=== PATIENT | female | born 1950 | race Caucasian/White ===

== ENCOUNTER → 2017-02-04 | Outpatient (CLI) | payer MEDICARE, BC ==
--- NOTE | 2017-02-04 15:11 | REP ---
THYROID ULTRASOUND: HISTORY: Followup nodule. COMPARISON: 06/02/2016 The prior exam showed a complex cystic and solid 3.3 x 2.3 x 2.3 cm sized mass in the right lobe of the thyroid gland, felt to be unchanged from prior exams. Today's examination shows a cystic and solid mass in the right lobe measuring approximately 3.5 x 2.4 x 3 cm, possibly increased slightly when the technical differences between the exams are taken into consideration. Overall the right lower thyroid gland measures 5.1 x 3.1 x 2.7 cm and the left lobe measures 3.3 x 0.9 x 1.2 cm. The isthmus measures 5 mm. IMPRESSION: Possible slight increase in size, right sided mass as described above. Signed by Jus Moseley DO 02/04/2017 04:52 P
== END ==
LOC: M RAD 14:03
PROVIDERS: ATTEND Physician Assistant Medical
DX: E04.1 Nontoxic single thyroid nodule (principal)

== ENCOUNTER → 2017-02-17 | Outpatient (CLI) | payer MEDICARE, BC ==
[~2017-02-17] MED LIST: METHACHOLINE KIT (J7674) INH ONE
--- NOTE | 2017-02-17 10:08 | PFTRPT ---
Tech: Courtney BARRIOS RRT Age: 67 Sex: Female Race: Height: 62.00 Inches Weight: 168.00 Lbs BSA: 1.77 Diagnosis: R06.00 METHACHOLINE CHALLENGE REPORT: ORDERING PROVIDER:Jace Feldman D.O. DATE OF SERVICE: 02/17/17 INTERPRETATION: The study was of excellent technical quality. Some difficulty with cough is noted. Under protocol, methacholine was administered. Even after a maximal dose of 25 mg (188.875 CDUs) of methacholine, no provocation dose was ever achieved, as the maximal deflection was 19% in his FEV1. IMPRESSION: Negative methacholine challenge study. MTDD
== END ==
LOC: M CARPUL 07:32
PROVIDERS: ATTEND Internal Medicine Pulmonary Disease
DX: R06.00 Dyspnea, unspecified (principal)
CPT/HCPCS: 94070; 95070; J7674

== ENCOUNTER → 2017-02-18 | Outpatient (CLI) | payer MEDICARE, BC ==
--- NOTE | 2017-02-21 08:59 | SLEEPHOME ---
DATE OF PROCEDURE: 02/18/2017 ORDERED BY: Dr. Feldman Diagnostic home sleep testing was performed for reevaluation of sleep apnea syndrome symptoms in this patient with a history of nonrestorative sleep and prior sleep apnea post uvulopalatopharyngoplasty. For testing, a NOX-T3 respiratory monitoring device was used. Continuous record was made of pulse, oxygen saturation, airflow, chest and abdominal strain, and body position. 9 hours and 59 minutes of data were reviewed. There were 8 hours and 15 minutes marked as time in bed. During the interval marked time in bed, there were 322 respiratory events identified of 10 seconds in duration or greater for a respiratory event index of 39. The events were purely obstructive. Baseline pulse rate was 64 beats per minute. Pulse rate ranged 50 to 95. Baseline saturation was 93%. Lowest oxygen saturation was 88%. Testing was performed in both the supine and nonsupine positions. IMPRESSION: Abnormal home sleep testing with repetitive respiratory events and oxygen desaturation to 88% with a respiratory event index of 39 is consistent with severe obstructive sleep apnea syndrome. RECOMMENDATION: The patient should be encouraged to undergo formal sleep evaluation and in-laboratory pressure titration.
== END ==
LOC: M SLEEP HO 08:47
PROVIDERS: ATTEND Internal Medicine Pulmonary Disease
DX: R06.83 Snoring (principal)

== ENCOUNTER → 2017-02-19 | Outpatient (CLI) | payer MEDICARE, BC | LOC: M LAB 12:08 | PROVIDERS: ATTEND Physician Assistant Medical | DX: E04.1 Nontoxic single thyroid nodule (principal) ==

== ENCOUNTER → 2017-03-09 | Outpatient (CLI) | payer MEDICARE, BC | LOC: M SLEEP 03-07 19:45 | PROVIDERS: ATTEND Internal Medicine Pulmonary Disease | DX: G47.33 Obstructive sleep apnea (adult) (pediatric) (principal) ==

== ENCOUNTER → 2017-12-09 | Outpatient (REF) | payer MEDICARE, BC | LOC: M LAB REF 18:27 | DX: L72.11 Pilar cyst (principal) | CPT/HCPCS: 88305 ==

== ENCOUNTER → 2018-03-10 | Outpatient (REF) | payer MEDICARE, BC | LOC: M LAB REF 12:08 | DX: N60.39 Fibrosclerosis of unspecified breast (principal) | CPT/HCPCS: 88305 ==

== ENCOUNTER 2018-07-02 18:18 | Emergency (ER) | payer MEDICARE, BC ==
[2018-07-02 21:26] LABS: BASO % 0.3 % (0.0-1.0); EOS # 0.2 10^3/uL (0.0-0.50); EOS % 1.9 % (0.0-3.0); HEMATOCRIT 37.7 % (36.0-47.0); HEMOGLOBIN 12.4 g/dl (12.0-15.5); IMMATURE GRANULOCYTE % 0.4 % (0-3.0); LYMPH # 1.8 10^3/uL (1.5-4.5); LYMPH % 17.8 % (24.0-44.0); MEAN CORPUSCULAR HGB CONC 32.9 g/dl (32.0-36.5); MEAN CORPUSCULAR VOLUME 88.1 fl (80.0-96.0); MONO % 9.5 % (0.0-5.0); NEUTROPHILS # 7.1 10^3/uL (1.8-7.7); NEUTROPHILS % 70.1 % (36.0-66.0); PLATELET COUNT, AUTOMATED 224 10^3/uL (150-450); RED BLOOD COUNT 4.28 10^6/uL (4.00-5.40); RED CELL DISTRIBUTION WIDTH 13.5 % (11.5-14.5); WHITE BLOOD COUNT 10.1 10^3/uL (4.0-10.0)
[2018-07-02 21:53] LABS: ALBUMIN 3.6 GM/DL (3.2-5.2); ALBUMIN/GLOBULIN RATIO 1.03 (1.00-1.93); ALKALINE PHOSPHATASE 81 U/L (45-117); ALT/SGPT 35 U/L (12-78); AMYLASE 32 U/L (25-115); ANION GAP 7 MEQ/L (8-16); AST/SGOT 17 U/L (7-37); BILIRUBIN,DIRECT 0.2 MG/DL (0.0-0.2); BILIRUBIN,TOTAL 0.7 MG/DL (0.2-1.0); BLOOD UREA NITROGEN 16 MG/DL (7-18); CALCIUM LEVEL 9.1 MG/DL (8.8-10.2); CARBON DIOXIDE LEVEL 29 MEQ/L (21-32); CHLORIDE LEVEL 106 MEQ/L (98-107); CREATININE FOR GFR 0.84 MG/DL (0.55-1.30); GLOMERULAR FILTRATION RATE > 60.0 (>45); GLUCOSE, FASTING 101 MG/DL (70-100); LIPASE 171 U/L (73-393); POTASSIUM SERUM 4.3 MEQ/L (3.5-5.1); SODIUM LEVEL 142 MEQ/L (136-145); TOTAL PROTEIN 7.1 GM/DL (6.4-8.2)
[2018-07-02 22:09] LABS: KETONE, URINE AUTO RFX TRACE mg/dL (NEGATIVE); MUCUS, URINE RFX SMALL (NEGATIVE); NITRITE, URINE AUTO RFX NEGATIVE (NEGATIVE); RBC, URINE AUTO RFX 2 /HPF (0-3); SQUAM EPITHELIAL CELL UR AURFX 0 /HPF (0-6)
[2018-07-02 22:20] LABS: LEUKOCYTE ESTERASE UR AUTO RFX 1+ (NEGATIVE); WBC, URINE AUTO RFX 14 /HPF (0-3)
[2018-07-02] MEDS ORDERED: ISOVUE-370 76% 100ML VIAL (Q9967) As Ordered (22:49)
[2018-07-03] MEDS: AUGMENTIN 875 MG TAB PO (00:12)
== END 2018-07-03 00:15 | disposition home or self-care (01) ==
LOC: M ED 07-03 00:15
DX: K57.32 Diverticulitis of large intestine without perforation or abscess without bleeding (principal); E11.9 Type 2 diabetes mellitus without complications; I10 Essential (primary) hypertension; K21.9 Gastro-esophageal reflux disease without esophagitis; F41.9 Anxiety disorder, unspecified; F32.9 Major depressive disorder, single episode, unspecified; Z79.899 Other long term (current) drug therapy; Z79.84 Long term (current) use of oral hypoglycemic drugs; Z88.5 Allergy status to narcotic agent; Z88.8 Allergy status to other drugs, medicaments and biological substances
CPT/HCPCS: Q9967

== ENCOUNTER 2019-03-10 07:33 | Day surgery (SDC) | payer MEDICARE, BC ==
[~2019-03-10] VITALS: Ht 154.9 cm; Wt 76.7 kg
[~2019-03-10 07:33] MED LIST changes: +ALPR0.25; +ASPI81TA85 PO; +ATOR1TAB19; +AUGM875T28 PO; +CLOBETASOL; +ESCI10TA2; +FISH1000 PO; +LISI-542; +MAGN400C PO; +METF500T4; -METHACHOLINE KIT (J7674) INH ONE; +METO1TAB87; +PANT40TA3; +SERT25TA88; +VITA50005; +ZOFR4TAB14 PO
[2019-03-10] MEDS: NS 1,000 ML IV SCH (08:15)
--- NOTE | 2019-03-10 08:51 | ROOR ---
Patient Name: Yuliana Bullock Procedure Date: 03/10/2019 8:34 AM Date of : 1950 Age: 69 Room: [facility] Gender: Female Note Status: Finalized Procedure: Upper GI endoscopy Indications: Dysphagia Providers: Catarino Way Jr, MD Referring MD: Karen Glaser DO Requesting Provider: Medicines: Propofol per Anesthesia Complications: No immediate complications. Procedure: Pre-Anesthesia Assessment: - Prior to the procedure, a History and Physical was performed, and patient medications and allergies were reviewed. The patient is competent. The risks and benefits of the procedure and the sedation options and risks were discussed with the patient. All questions were answered and informed consent was obtained. Patient identification and proposed procedure were verified by the physician and the nurse in the pre-procedure area and in the procedure room. Mental Status Examination: alert and oriented. Airway Examination: normal oropharyngeal airway and neck mobility. Respiratory Examination: clear to auscultation. CV Examination: normal. ASA Grade Assessment: II - A patient with mild systemic disease. After reviewing the risks and benefits, the patient was deemed in satisfactory condition to undergo the procedure. The anesthesia plan was to use moderate sedation / analgesia (conscious sedation). Immediately prior to administration of medications, the patient was re-assessed for adequacy to receive sedatives. The heart rate, respiratory rate, oxygen saturations, blood pressure, adequacy of pulmonary ventilation, and response to care were monitored throughout the procedure. The physical status of the patient was re-assessed after the procedure. The Endoscope was introduced through the mouth, and advanced to the second part of duodenum. The upper GI endoscopy was accomplished without difficulty. The patient tolerated the procedure well. Findings: The upper third of the esophagus, middle third of the esophagus, lower third of the esophagus and gastroesophageal junction were normal. Abnormal motility was noted in the upper third of the esophagus and in the middle third of the esophagus. The cricopharyngeus was normal. There are extra peristaltic waves in the esophageal body. The distal esophagus/lower esophageal sphincter is open. The cardia, gastric fundus, gastric body, gastric antrum, prepyloric region of the stomach and pylorus were normal. Multiple pedunculated polyps with no bleeding and no stigmata of recent bleeding were found in the gastric fundus and in the gastric body. The duodenal bulb, first portion of the duodenum and second portion of the duodenum were normal. Impression: - Normal upper third of esophagus, middle third of esophagus, lower third of esophagus and gastroesophageal junction. - Abnormal esophageal motility. Probable esophageal spasm - Normal cardia, gastric fundus, gastric body, antrum, prepyloric region of the stomach and pylorus. - Multiple gastric inflammatory polyps. seen on UPPER GI [place] 2014 - Normal duodenal bulb, first portion of the duodenum and second portion of the duodenum. - No specimens collected. Recommendation: - Return to my office in 2 weeks. May need referral for esophageal manometry if continues to bother the patient Caatrino Way MD Catarino Way Jr, MD 03/10/2019 8:50:44 AM Electronically signed by Catarino Way Jr, MD Number of Addenda: 0 Note Initiated On: 03/10/2019 8:34 AM Estimated Blood Loss: Estimated blood loss: none.
[2019-03-10 09:05] VITALS: BP 120/58
[2019-03-10] MEDS ORDERED: PROPOFOL 200 MG/20 ML VIAL As Ordered ONE (09:39)
[2019-03-10] MEDS ORDERED: LIDOCAINE 2% INJ 100 MG/5 ML SDV (FOR ANES.) As Ordered ONE (09:39)
== END 2019-03-10 09:14 | disposition home or self-care (01) ==
LOC: M OPP 07:33
PROVIDERS: ATTEND Surgery
DX: K22.4 Dyskinesia of esophagus (principal); K31.7 Polyp of stomach and duodenum; R13.10 Dysphagia, unspecified

== ENCOUNTER → 2019-08-04 | Outpatient (REF) | payer MEDICARE, BC ==
[~2019-08-04] MED LIST changes: +METF-791; -METF500T4; +SERT25TA21; -SERT25TA88
[2019-08-06 00:07] LABS: ANTI DOUBLE STRAND-DNA AB <1 IU/mL (0-9); ANTINUCLEAR ANTIBODIES DIRECT Positive (Negative); CYCLIC CITRULLINATED PEPTIDE 8 units (0-19); Lyme Disease IgG/IgM Antibodie <0.91 ISR (0.00-0.90); Lyme Disease IgM Ab Quantitati <0.80 index (0.00-0.79); RNP ANTIBODIES <0.2 AI (0.0-0.9); SJOGREN'S ANTI SS-A <0.2 AI (0.0-0.9); SJOGREN'S ANTI SS-B <0.2 AI (0.0-0.9); SMITH ANTIBODIES <0.2 AI (0.0-0.9)
== END ==
LOC: M LAB REF 12:07
PROVIDERS: ATTEND Internal Medicine
DX: M79.10 Myalgia, unspecified site (principal); M25.50 Pain in unspecified joint; R53.83 Other fatigue

== ENCOUNTER → 2019-08-04 | Outpatient (REF) | payer MEDICARE, BC ==
[2019-08-06 15:57] LABS: THRYOGLOBULIN ANTIBODIES (ATA) < 1.0 IU/mL (0.0-0.9); THYROGLOBULIN QUANTITATIVE 208.8 ng/mL (1.5-38.5)
== END ==
LOC: M LAB REF 17:19
PROVIDERS: ATTEND Internal Medicine
DX: R53.83 Other fatigue (principal)

== ENCOUNTER → 2020-06-02 | Outpatient (CLI) | payer MEDICARE, BC ==
[~2020-06-02] MED LIST changes: -ASPI81TA85 PO; +ASPI81TA86 PO; -METF-791; +METF-838; +PANT40TA29; -PANT40TA3
== END ==
LOC: M LABSMTC 10:35
PROVIDERS: ATTEND Anesthesiology
DX: Z01.812 Encounter for preprocedural laboratory examination (principal); Z20.828 Contact with and (suspected) exposure to other viral communicable diseases

== ENCOUNTER 2020-06-07 09:41 | Day surgery (SDC) | payer MEDICARE, BC ==
[~2020-06-07] VITALS: Ht 157.5 cm; Wt 68.0 kg
[~2020-06-07 09:41] MED LIST changes: +NS 1,000 ML IV ONE
[2020-06-07] MEDS ORDERED: LIDOCAINE 2% 100MG/5ML SDV (FOR ANES.) As Ordered ONE (10:30)
[2020-06-07] MEDS ORDERED: propofoL 200 MG/20 ML VIAL As Ordered ONE (10:30)
[2020-06-07 11:35] VITALS: BP 138/65
--- NOTE | 2020-06-20 11:36 | ROOR ---
Patient Name: Yuliana Bullock Procedure Date: 06/07/2020 8:12 AM Date of : 1950 Age: 70 Room: [facility] Gender: Female Note Status: Finalized Procedure: Colonoscopy Indications: Screening for colorectal malignant neoplasm Providers: Catarino Way Jr, MD Referring MD: Karen Glaser DO Requesting Provider: Medicines: Propofol per Anesthesia Complications: No immediate complications. Procedure: Pre-Anesthesia Assessment: - Prior to the procedure, a History and Physical was performed, and patient medications and allergies were reviewed. The patient is competent. The risks and benefits of the procedure and the sedation options and risks were discussed with the patient. All questions were answered and informed consent was obtained. Patient identification and proposed procedure were verified by the physician and the nurse in the pre-procedure area and in the procedure room. Mental Status Examination: alert and oriented. Airway Examination: normal oropharyngeal airway and neck mobility. Respiratory Examination: clear to auscultation. CV Examination: normal. ASA Grade Assessment: II - A patient with mild systemic disease. After reviewing the risks and benefits, the patient was deemed in satisfactory condition to undergo the procedure. The anesthesia plan was to use moderate sedation / analgesia (conscious sedation). Immediately prior to administration of medications, the patient was re-assessed for adequacy to receive sedatives. The heart rate, respiratory rate, oxygen saturations, blood pressure, adequacy of pulmonary ventilation, and response to care were monitored throughout the procedure. The physical status of the patient was re-assessed after the procedure. The Colonoscope was introduced through the anus and advanced to the cecum, identified by appendiceal orifice and ileocecal valve. The colonoscopy was performed without difficulty. The patient tolerated the procedure well. The quality of the bowel preparation was adequate. Findings: Multiple small-mouthed diverticula were found in the sigmoid colon. Two sessile polyps were found in the ascending colon and cecum. The polyps were small in size. These polyps were removed with a cold snare. Resection and retrieval were complete. The rectum, recto-sigmoid colon, descending colon, transverse colon, appendiceal orifice and ileocecal valve appeared normal. Impression: - Diverticulosis in the sigmoid colon. - Two small polyps in the ascending colon and in the cecum, removed with a cold snare. Resected and retrieved. - The rectum, recto-sigmoid colon, descending colon, transverse colon, appendiceal orifice and ileocecal valve are normal. Recommendation: - Discharge patient to home (ambulatory). - Repeat colonoscopy in 5-10 years for surveillance based on pathology results. Catarino Way MD Catarino Way Jr, MD 06/07/2020 11:01:31 AM Number of Addenda: 0 Note Initiated On: 06/07/2020 8:12 AM Estimated Blood Loss: Estimated blood loss: none.
== END 2020-06-07 11:38 | disposition home or self-care (01) ==
LOC: M OPP 09:41
PROVIDERS: ATTEND Surgery
DX: Z12.11 Encounter for screening for malignant neoplasm of colon (principal); D12.6 Benign neoplasm of colon, unspecified; K57.30 Diverticulosis of large intestine without perforation or abscess without bleeding; I10 Essential (primary) hypertension; K21.9 Gastro-esophageal reflux disease without esophagitis; Z79.82 Long term (current) use of aspirin; Z79.899 Other long term (current) drug therapy; Z88.5 Allergy status to narcotic agent; Z88.6 Allergy status to analgesic agent; Z88.8 Allergy status to other drugs, medicaments and biological substances; Z91.040 Latex allergy status

== ENCOUNTER → 2021-01-21 | Outpatient (CLI) | payer MEDICARE, BC ==
[~2021-01-21] MED LIST changes: +E-Z-GAS II EFFERVESCENT PACKET (SODIUM BICARB./CITRIC ACID/SIMETHICONE) As Ordered ONE; +E-Z-HD 98% w/w 340GM SUSP BTL As Ordered ONE; +E-Z-PAQUE 96% w/w SUSP 176GM BTL As Ordered ONE; +ESCI10TA16; -ESCI10TA2; -LISI-542; +LISI-898; -NS 1,000 ML IV ONE
--- NOTE | 2021-01-21 17:21 | REP ---
INDICATION: DYSPHAGIA. COMPARISON: None. TECHNIQUE: The procedure was performed under the direct supervision of Dr. Freed. The images were reviewed with Dr. Freed. Liquid barium and gas producing crystals were given in the erect position as well as liquid barium in the prone oblique position in order to perform a double contrast upper GI examination. Additionally liquid barium was given at the end of the examination in order to perform a small bowel follow through. 2.6 minutes of fluoro time was utilized for this procedure. FINDINGS: The facility technician film shows no organomegaly or pathological masses. The intestinal gas pattern is non-specific. The oral and pharyngeal stages of deglutition are unremarkable. Esophageal transport is prompt and efficient and there is no esophagitis, stricture or mucosal ring. There is a sliding-type hiatal hernia. There is gastroesophageal reflux demonstrated to the level of the thoracic inlet. Within the stomach morton are normally outlined. The rugal folds are smooth and regular. There is no gastritis neoplasm or ulcer disease. In the stomach there are multiple sub cm polyps as seen on a previous exam dated 10/25/2014. The duodenal morton are normally outlined . The mucosal folds are smooth and regular. There is no duodenitis pancreatitis peptic ulcer disease or neoplasm. The visualized portion of the proximal small bowel appears normal in course and caliber. The barium column was followed through the small bowel to the level of the terminal ileum. Small bowel transit time is approximately 30 minutes. During fluoroscopy gentle palpation shows all loops are freely movable and pliable. There are no fixed or angulated loops. The small bowel mucosal pattern is normal in course and caliber. There is no transition to suggest a partial small-bowel obstruction. Spot filming of the terminal ileum shows it to be unremarkable. IMPRESSION: 1. There is a sliding-type hiatal hernia. There is gastroesophageal reflux demonstrated to the level of the thoracic inlet. 2. There are multiple sub cm polyps in the stomach as seen on a previous exam dated 10/25/2014. . <Electronically signed by Warren Mckeon > 01/21/21 [id number] <Electronically signed by Tejas Freed > 01/21/21 [id number]
== END ==
LOC: M RAD 09:53
PROVIDERS: ATTEND Internal Medicine
DX: K44.9 Diaphragmatic hernia without obstruction or gangrene (principal); K21.9 Gastro-esophageal reflux disease without esophagitis

== ENCOUNTER → 2021-02-21 | Outpatient (CLI) | payer MEDICARE, BC ==
[~2021-02-21] MED LIST changes: -ALPR0.25; +ALPR0.25 PO; +ASPI81TA26 PO; +CLOBETASOL TOP; -E-Z-GAS II EFFERVESCENT PACKET (SODIUM BICARB./CITRIC ACID/SIMETHICONE) As Ordered ONE; -E-Z-HD 98% w/w 340GM SUSP BTL As Ordered ONE; -E-Z-PAQUE 96% w/w SUSP 176GM BTL As Ordered ONE; +LEXA1TAB PO; +OMEP40CA97 PO; +PRED10PA PO; +VITA50005 PO
== END ==
LOC: M LABSMTC 10:18
PROVIDERS: ATTEND Anesthesiology
DX: Z01.818 Encounter for other preprocedural examination (principal); Z20.822 Contact with and (suspected) exposure to COVID-19

== ENCOUNTER 2021-02-26 08:24 | Day surgery (SDC) | payer MEDICARE, BC ==
[~2021-02-26] VITALS: Ht 157.5 cm; Wt 76.2 kg
[~2021-02-26 08:24] MED LIST changes: +LR 1,000 ML IV ONE; +ceFAZolin SOD 1 GM in D5W MINI-BAG PLUS 50 ML IV ONE
[2021-02-26] MEDS ORDERED: ONDANSETRON 4MG/2ML VIAL As Ordered ONE (09:36)
[2021-02-26] MEDS ORDERED: LIDOCAINE 2% 100MG/5ML SDV (FOR ANES.) As Ordered ONE (09:36)
[2021-02-26] MEDS ORDERED: propofoL 200 MG/20 ML VIAL As Ordered ONE (09:36)
[2021-02-26] MEDS ORDERED: MIDAZOLAM INJ 2MG/2ML VIAL (J2250 PER 1MG) As Ordered ONE (09:37)
[2021-02-26] MEDS ORDERED: BUPIVACAINE HCL 0.25% 30ML VIAL As Ordered ONE (10:13)
[2021-02-26 12:35] VITALS: BP 137/62
--- NOTE | 2021-03-20 10:38 | RO ---
OPERATIVE NOTE DATE OF OPERATION: 02/26/2021 PREOPERATIVE DIAGNOSIS: Lipoma right thigh. POSTOPERATIVE DIAGNOSIS: Lipoma right thigh (6 cm x 8 cm). PROCEDURE: Excision of multilobulated right thigh lipoma. SURGEON: Catarino Way Jr, MD. EDGE INKER HEELS: ANESTHESIA: IV sedation. EBL: Minimal. FLUIDS: Crystalloid. BRIEF PROCEDURE SUMMARY: Patient was brought to the operating room and was given IV sedation plus local anesthetic. Was prepped and draped in the usual sterile fashion, and an incision was made over the top of the multilobulated lipoma. Initial incision was carried down to the wall of the lipoma/sac, and what I found was this multilobulated lipoma, and a combination of blunt and sharp dissection as well as electrocautery was used to remove the lipoma and take down the attachments to the surrounding tissue. Eventually once I was able to mobilize this adequately and take all the lobules out of the surrounding subcutaneous tissue, the area was irrigated and then a good hemostasis was achieved with minimal electrocautery. 3-0 Vicryl was used to close the dermis. 4-0 Vicryl was used to approximate the skin. Steri-Strips and a dry sterile dressing was applied. Patient was awakened from our anesthesia and brought to the recovery room awake, alert, and hemodynamically stable. Sponge and needle counts correct x2.
== END 2021-02-26 12:35 | disposition home or self-care (01) ==
LOC: M SDC 08:24
PROVIDERS: ATTEND Surgery
DX: D17.23 Benign lipomatous neoplasm of skin and subcutaneous tissue of right leg (principal); I10 Essential (primary) hypertension; E78.00 Pure hypercholesterolemia, unspecified; E11.9 Type 2 diabetes mellitus without complications; E04.9 Nontoxic goiter, unspecified; K21.9 Gastro-esophageal reflux disease without esophagitis; R13.10 Dysphagia, unspecified; M19.90 Unspecified osteoarthritis, unspecified site; M54.9 Dorsalgia, unspecified; L30.9 Dermatitis, unspecified; G43.909 Migraine, unspecified, not intractable, without status migrainosus; G47.30 Sleep apnea, unspecified; Z88.5 Allergy status to narcotic agent; Z88.1 Allergy status to other antibiotic agents; Z88.4 Allergy status to anesthetic agent; Z91.040 Latex allergy status; Z79.899 Other long term (current) drug therapy; Z79.82 Long term (current) use of aspirin; Z79.84 Long term (current) use of oral hypoglycemic drugs; Z79.52 Long term (current) use of systemic steroids
CPT/HCPCS: 27337; 88304; J0690; J2250; J2405

== ENCOUNTER 2021-03-15 16:53 | Emergency (ER) | payer MEDICARE, BC ==
[~2021-03-15] VITALS: Ht 157.5 cm; Wt 77.2 kg
[~2021-03-15 16:53] MED LIST changes: -LR 1,000 ML IV ONE; -ceFAZolin SOD 1 GM in D5W MINI-BAG PLUS 50 ML IV ONE
--- NOTE | 2021-03-15 19:51 | REP ---
INDICATION: post op pain r/o dvt COMPARISON: None. TECHNIQUE: Freed scale and color Doppler evaluation using linear high frequency transducer. FINDINGS: Ultrasound examination of the right lower extremity deep venous structures from the common femoral vein through the calf/ankle to include the peroneal, and tibial veins demonstrates normal compressibility flow and wave patterns in response to respiration and augmentation. There is no evidence for deep venous thrombosis. Contralateral CFV is patent and normal. There is a 6.0 x 2.5 x 5.9 cm complex fluid collection in the subcutaneous tissue at the site of recent surgical incision which likely represents seroma versus hematoma. IMPRESSION: 1. No evidence for deep venous thrombosis. 2. Complex fluid collection at the site of recent incision likely representing hematoma versus seroma. <Electronically signed by Chino Alvarado > 03/15/211947
[2021-03-15 20:17] VITALS: BP 149/67
--- NOTE | 2021-03-16 06:47 | ED PDOC ---
Post-Departure Follow-Up tabitha tobar and jesús faxed formal report of RLE us for fu José Leyva MD Mar 16, 2021 06:47
== END 2021-03-15 20:17 | disposition home or self-care (01) ==
LOC: M ED 16:53
DX: L76.34 Postprocedural seroma of skin and subcutaneous tissue following other procedure (principal); I10 Essential (primary) hypertension; E11.9 Type 2 diabetes mellitus without complications; E78.00 Pure hypercholesterolemia, unspecified; F33.9 Major depressive disorder, recurrent, unspecified; F41.9 Anxiety disorder, unspecified; G47.30 Sleep apnea, unspecified; K21.9 Gastro-esophageal reflux disease without esophagitis; Z86.018 Personal history of other benign neoplasm; Z79.899 Other long term (current) drug therapy; Z79.82 Long term (current) use of aspirin; Z79.84 Long term (current) use of oral hypoglycemic drugs; Z88.1 Allergy status to other antibiotic agents; Z88.5 Allergy status to narcotic agent; Z88.6 Allergy status to analgesic agent; Z88.8 Allergy status to other drugs, medicaments and biological substances

== ENCOUNTER → 2021-04-16 | Outpatient (CLI) | payer MEDICARE, BC ==
[~2021-04-16] MED LIST changes: +ERGO500029 PO; +OMEP40CA4 PO; -OMEP40CA97 PO; -VITA50005 PO
--- NOTE | 2021-04-16 11:46 | REPMRS ---
Patient History The patient states she has not had a clinical breast exam in over a year. Patient is postmenopausal. Family history of breast cancer at age 50 or over in sister. Benign excisional biopsy. Patient states no breast complaints today. Patient has signed MRS History Sheet. Digital Woman Screen Mammo: April 16, 2021 - Exam #: [id number] Bilateral CC and MLO view(s) were taken. Technologist: Zuly Germain, Technologist Prior study comparison: April 09, 2020, bilateral digital mammo screening bilat, performed at [facility]. March 08, 2019, digital mammo screening bilat, performed at [facility]. FINDINGS: There are scattered fibroglandular densities. Screening. Digital screening (2D) mammography was performed bilaterally in the CC and MLO projections. Additionally, breast tomosynthesis (3D mammography) was performed bilaterally in the CC and MLO projections. Todays exam was compared to the prior exam/exams. By history, the patient has no complaints of a palpable breast abnormality or other significant breast complaints. The breasts are unchanged in size and shape.There is stable post-procedural internal architectural distortion. There are no bebo-soft tissue densities or spiculated masses. There is no bebo internal architectural distortion. Once again, stable benign appearing calcifications are seen.There are no suspicious bebo-calcific clusters. Skin thickening or nipple retraction is not present. IMPRESSION: BI-RADS Category 2- Benign Findings. There is no evidence of malignant alteration of the breasts. Followup examination recommended in one year. The Volpara volumetric breast density category is B, there are scattered areas of fibroglandular densities. This mammogram was read with the assistance of [facility] [employer],an FDA approved computer aided detection system for mammography. The lifetime Tyrer-Cuzick score is 6 % Negative x-ray reports should not delay surgical consultation if a dominant or clinically suspicious mass is present. Not all breast cancers can be identified by mammography. Therefore, we recommend that you continue to perform regular breast self-examination and physical examination and then promptly contact your physician of any concerns or changes. Adenosis and dense breasts may obscure an underlying neoplasm. Assessment: BI-RADS/ACR category 2 mammogram. Benign Findings. Recommendation Routine screening mammogram of both breasts in 1 year. Electronically Signed By: Jus Moseley DO 04/16/21 [id number]
== END ==
LOC: M WHC 10:00
PROVIDERS: ATTEND Internal Medicine
DX: Z12.31 Encounter for screening mammogram for malignant neoplasm of breast (principal); Z78.0 Asymptomatic menopausal state; Z80.3 Family history of malignant neoplasm of breast; Z86.018 Personal history of other benign neoplasm; R92.1 Mammographic calcification found on diagnostic imaging of breast

== ENCOUNTER 2021-06-13 14:25 | Emergency (ER) | payer MEDICARE, BC ==
[~2021-06-13] VITALS: Ht 157.5 cm; Wt 77.3 kg
[2021-06-13 19:09] VITALS: BP 146/72
[2021-06-13] MEDS: NS 1,000 ML IV ONE (19:47)
[2021-06-13] MEDS: PANTOPRAZOLE 40MG VIAL (C9113 PER 1) IV ONE (19:47)
[2021-06-13] MEDS: ONDANSETRON 4MG/2ML VIAL IV ONE (19:47)
[2021-06-13 20:06] LABS: BASO % 0.3 % (0.0-1.0); EOS # 0.1 10^3/uL (0.0-0.5); EOS % 0.8 % (0.0-3.0); HEMATOCRIT 40.3 % (36.0-47.0); LYMPH # 1.4 10^3/uL (1.5-5.0); MEAN CORPUSCULAR HEMOGLOBIN 28.8 pg (27.0-33.0); MEAN CORPUSCULAR HGB CONC 32.3 g/dl (32.0-36.5); MEAN CORPUSCULAR VOLUME 89.4 fl (80.0-96.0); MONO # 0.6 10^3/uL (0.0-0.8); MONO % 6.6 % (2.0-8.0); NEUTROPHILS # 6.8 10^3/uL (1.5-8.5); PLATELET COUNT, AUTOMATED 264 10^3/uL (150-450); RED BLOOD COUNT 4.51 10^6/uL (4.00-5.40); WHITE BLOOD COUNT 8.9 10^3/uL (4.0-10.0)
[2021-06-13 20:41] LABS: ALBUMIN 3.6 GM/DL (3.2-5.2); BILIRUBIN,DIRECT 0.1 MG/DL (0.0-0.2); BILIRUBIN,TOTAL 0.5 MG/DL (0.2-1.0); TOTAL PROTEIN 6.8 GM/DL (6.4-8.2)
[2021-06-13] MEDS ORDERED: ISOVUE-370 76% 100ML VIAL As Ordered ONE (21:10)
--- NOTE | 2021-06-13 21:53 | REPVR ---
PROCEDURE INFORMATION: Exam: CT Abdomen And Pelvis With Contrast Exam date and time: 06/13/2021 9:22 PM Age: 71 years old Clinical indication: Abdominal pain; Localized; Left lower quadrant (llq); Additional info: Llq abd pain, HX divertic, nvd TECHNIQUE: Imaging protocol: Computed tomography of the abdomen and pelvis with contrast. Radiation optimization: All CT scans at this facility use at least one of these dose optimization techniques: automated exposure control; mA and/or kV adjustment per patient size (includes targeted exams where dose is matched to clinical indication); or iterative reconstruction. Contrast material: ISOVUE 370; Contrast volume: 100 ml; Contrast route: INTRAVENOUS (IV); COMPARISON: CT ABD/PEL W/IV CONTRAST ONLY 07/02/2018 10:55 PM FINDINGS: Lungs: Minimal fibro-atelectatic change in the right lower lobe. Liver: The liver attenuation is 45 Hounsfield units and the spleen is 130 Hounsfield units. Gallbladder and bile ducts: Status post cholecystectomy. Pancreas: Normal. No ductal dilation. Spleen: Normal. No splenomegaly. Adrenal glands: Normal. No mass. Kidneys and ureters: Probable left renal peripelvic cysts. No hydronephrosis. There is a new calcification in the region of the distal left ureter adjacent to the UVJ since the prior study measuring approximately the 2 x 2 x 3 mm which is suspicious for a distal ureteral calculus on series 202, image # 59 and series 201, image # 135 Stomach and bowel: There is colonic diverticulosis without evidence of diverticulitis. Appendix: There are no changes of appendicitis. A normal appendix is not seen. Intraperitoneal space: Unremarkable. No free air. No significant fluid collection. Vasculature: Unremarkable. No abdominal aortic aneurysm. Lymph nodes: Unremarkable. No enlarged lymph nodes. Urinary bladder: Unremarkable as visualized. Reproductive: Status post hysterectomy. Bones/joints: Unremarkable. No acute fracture. Soft tissues: Unremarkable. IMPRESSION: 1. There appears to be a distal left ureteral calculus adjacent to the left UVJ measuring 2 x 2 x 3 mm which is new since 07/02/2018. No significant obstructive uropathy is seen. 2. Fatty infiltration of the liver. 3. There has been prior cholecystectomy and hysterectomy. 4. Colonic diverticulosis without diverticulitis. 5. Otherwise negative CT abdomen/pelvis. COMMENTS: Consistent with the [place] [employer]'s Incidental Findings Committee white paper (J Am Tory Radiol 2018): Any incidental renal lesion less than 1 cm or classified as too small to characterize, or any incidental cystic renal lesion characterized as simple-appearing, is likely benign. No follow-up imaging is recommended for these lesions per consensus recommendations based on imaging criteria. Electronically signed by: Haroldo Lambert On 06/13/2021 21:53:43 PM
[2021-06-13] MEDS ORDERED: FLOM0.4C39 PO (22:19)
[2021-06-13] MEDS: KETOROLAC 30 MG/ML 1ML VIAL IV ONE (22:20)
[2021-06-13] MEDS: TAMSULOSIN 0.4 MG CAP PO ONE (22:39)
== END 2021-06-13 22:53 | disposition home or self-care (01) ==
LOC: M ED 14:25
DX: N20.1 Calculus of ureter (principal); E11.9 Type 2 diabetes mellitus without complications; I10 Essential (primary) hypertension; E78.5 Hyperlipidemia, unspecified; G47.33 Obstructive sleep apnea (adult) (pediatric); K21.9 Gastro-esophageal reflux disease without esophagitis; Z79.84 Long term (current) use of oral hypoglycemic drugs; Z79.899 Other long term (current) drug therapy; Z79.82 Long term (current) use of aspirin; Z88.5 Allergy status to narcotic agent; Z88.6 Allergy status to analgesic agent; Z91.040 Latex allergy status; Z88.1 Allergy status to other antibiotic agents; Z88.8 Allergy status to other drugs, medicaments and biological substances; Z87.19 Personal history of other diseases of the digestive system; Z90.49 Acquired absence of other specified parts of digestive tract; Z98.890 Other specified postprocedural states
CPT/HCPCS: 74177; 80047; 80076; 81001; 83690; 85025; 96374; 96375; 99284; C9113; J1885; J2405; Q9967

== ENCOUNTER → 2021-12-18 | Outpatient (CLI) | payer MEDICARE, BC ==
[~2021-12-18] MED LIST changes: +FLOM0.4C39 PO; -LISI-898; +LISI5TAB11
== END ==
LOC: M LAB 10:22
PROVIDERS: ATTEND Internal Medicine
DX: E89.0 Postprocedural hypothyroidism (principal)

== ENCOUNTER → 2022-01-06 | Outpatient (CLI) | payer MEDICARE, BC | LOC: M RAD 13:40 | PROVIDERS: ATTEND Urology | DX: N20.0 Calculus of kidney (principal); K57.30 Diverticulosis of large intestine without perforation or abscess without bleeding ==

== ENCOUNTER → 2022-02-06 | Outpatient (CLI) | payer MEDICARE, BC | LOC: M LAB 13:55 | PROVIDERS: ATTEND Student in an Organized Health Care Education/Training Program | DX: E89.0 Postprocedural hypothyroidism (principal) ==

== ENCOUNTER → 2022-03-24 | Outpatient (CLI) | payer MEDICARE, BC | LOC: M LAB 15:00 | DX: E89.0 Postprocedural hypothyroidism (principal) ==

== ENCOUNTER → 2022-04-29 | Outpatient (CLI) | payer MEDICARE, BC | LOC: M WHC 09:26 | PROVIDERS: ATTEND Internal Medicine | DX: Z12.31 Encounter for screening mammogram for malignant neoplasm of breast (principal); R92.8 Other abnormal and inconclusive findings on diagnostic imaging of breast ==

== ENCOUNTER → 2022-05-14 | Outpatient (CLI) | payer MEDICARE, BC | LOC: M WHC 09:00 | PROVIDERS: ATTEND Internal Medicine | DX: R92.8 Other abnormal and inconclusive findings on diagnostic imaging of breast (principal) | CPT/HCPCS: 77065; G0279 ==

== ENCOUNTER → 2022-11-11 | Outpatient (CLI) | payer MEDICARE, BC | LOC: M RAD 10:59 | PROVIDERS: ATTEND Physician Assistant | DX: Z87.442 Personal history of urinary calculi (principal) ==

== ENCOUNTER 2023-02-10 15:57 | Observation (INO) | payer MEDICARE, BC ==
[~2023-02-10] VITALS: Ht 157.5 cm; Wt 76.9 kg
[~2023-02-10 15:57] MED LIST changes: -AMOX875T2 PO; -CLOB5CR TOP; -DUPI300P SQ; -ESOM40CA35 PO; -LATA0.0015 OU; -LEVO50TA5 PO; -LEXA1TAB2 PO; -OMEG10002 PO
[2023-02-10] MEDS ORDERED: LEVO50TA5 PO (16:34)
[2023-02-10] MEDS ORDERED: DUPI300P SQ (16:34)
[2023-02-10] MEDS: NS 1,000 ML IV SCH ×2 (16:49→19:56)
[2023-02-10 17:15] LABS: BASO % 0.4 % (0.0-1.0); EOS # 0.3 10^3/uL (0.0-0.5); EOS % 2.8 % (0.0-3.0); HEMATOCRIT 38.7 % (36.0-47.0); HEMOGLOBIN 12.3 g/dl (12.0-15.5); LYMPH % 21.8 % (24.0-44.0); MEAN CORPUSCULAR HEMOGLOBIN 28.4 pg (27.0-33.0); MEAN CORPUSCULAR HGB CONC 31.8 g/dl (32.0-36.5); MEAN CORPUSCULAR VOLUME 89.4 fl (80.0-96.0); MONO # 0.8 10^3/uL (0.0-0.8); MONO % 8.9 % (2.0-8.0); NEUTROPHILS % 65.7 % (36.0-66.0); PLATELET COUNT, AUTOMATED 225 10^3/uL (150-450); RED BLOOD COUNT 4.33 10^6/uL (4.00-5.40); WHITE BLOOD COUNT 9.2 10^3/uL (4.0-10.0)
[2023-02-10 17:44] LABS: LIPASE 39 U/L (12-53)
[2023-02-10 17:46] LABS: ALBUMIN 3.8 G/DL (3.2-5.2); ALKALINE PHOSPHATASE 69 U/L (46-116); ALT/SGPT 36 U/L (7.0-40); AST/SGOT 34 U/L (<34); BILIRUBIN,DIRECT 0.1 MG/DL (<0.4); BILIRUBIN,TOTAL 0.4 MG/DL (0.3-1.2); BLOOD UREA NITROGEN 16 MG/DL (9-23); CALCIUM LEVEL 8.8 MG/DL (8.3-10.6); CARBON DIOXIDE LEVEL 28 MMOL/L (20-31); CHLORIDE LEVEL 107 MMOL/L (98-107); CREATININE FOR GFR 0.84 MG/DL (0.55-1.30); GLOMERULAR FILTRATION RATE > 60.0 (>39); GLUCOSE, FASTING 85 MG/DL (74-106); POTASSIUM SERUM 4.7 MMOL/L (3.5-5.1); SODIUM LEVEL 141 MMOL/L (136-145); TOTAL PROTEIN 6.6 G/DL (5.7-8.2)
[2023-02-10] MEDS ORDERED: KETOROLAC 30 MG/ML 1ML VIAL IV ONE (18:10)
[2023-02-10] MEDS ORDERED: ISOVUE-370 76% 100ML VIAL As Ordered ONE (18:30)
[2023-02-10] MEDS ORDERED: AUGMENTIN 875 MG TAB PO ONE (19:40)
[2023-02-10] MEDS ORDERED: AMOX875T2 PO (19:42)
[2023-02-10] MEDS ORDERED: ERTAPENEM SODIUM 1 GM in NS MINI-BAG PLUS 50 ML IV ONE (19:45)
[2023-02-10] MEDS ORDERED: CLOB5CR TOP (20:28)
[2023-02-10] MEDS ORDERED: LATA0.0015 OU (20:28)
[2023-02-10] MEDS ORDERED: LEXA1TAB2 PO (20:28)
[2023-02-10] MEDS ORDERED: ESOM40CA35 PO (20:28)
[2023-02-10] MEDS ORDERED: OMEG10002 PO (20:28)
[2023-02-10] MEDS ORDERED: HOME MED LIST COMPLETE! XX SCH (20:30)
[2023-02-10] MEDS ORDERED: DEXTROSE 50% 50ML SYRINGE IV PRN (23:00)
[2023-02-10] MEDS ORDERED: GLUCAGON INJ 1MG VIAL SC PRN (23:00)
[2023-02-10] MEDS ORDERED: GLUCOSE 4GM CHEW TABLET PO PRN (23:00)
[2023-02-11] MEDS ORDERED: PANTOPRAZOLE 40MG VIAL IV SCH
[2023-02-11 00:55] VITALS: BP 151/76
[2023-02-11] MEDS: INSULIN LISPRO (NovoLOG) PER UNIT SC SCH ×2 (01:06→05:11)
[2023-02-11] MEDS: LR 1,000 ML IV SCH ×2 (01:09→09:52)
[2023-02-11 05:10] VITALS: BP 116/70
[2023-02-11 06:00] LABS: BASO % 0.3 % (0.0-1.0); EOS # 0.2 10^3/uL (0.0-0.5); EOS % 2.6 % (0.0-3.0); HEMATOCRIT 33.5 % (36.0-47.0); LYMPH # 1.5 10^3/uL (1.5-5.0); LYMPH % 21.5 % (24.0-44.0); MEAN CORPUSCULAR HEMOGLOBIN 28.8 pg (27.0-33.0); MEAN CORPUSCULAR HGB CONC 32.8 g/dl (32.0-36.5); MEAN CORPUSCULAR VOLUME 87.7 fl (80.0-96.0); MONO # 0.6 10^3/uL (0.0-0.8); MONO % 8.9 % (2.0-8.0); NEUTROPHILS # 4.6 10^3/uL (1.5-8.5); NEUTROPHILS % 66.4 % (36.0-66.0); PLATELET COUNT, AUTOMATED 196 10^3/uL (150-450); RED BLOOD COUNT 3.82 10^6/uL (4.00-5.40); WHITE BLOOD COUNT 6.9 10^3/uL (4.0-10.0)
[2023-02-11] MEDS ORDERED: AUGMENTIN 875 MG TAB PO SCH (06:00)
[2023-02-11] MEDS ORDERED: HEPARIN SOD (PORCINE) 5000UNITS/ML 1ML VIAL/SYRINGE SC SCH (06:00)
[2023-02-11 06:28] LABS: BLOOD UREA NITROGEN 12 MG/DL (9-23); CALCIUM LEVEL 7.9 MG/DL (8.3-10.6); CARBON DIOXIDE LEVEL 28 MMOL/L (20-31); CHLORIDE LEVEL 110 MMOL/L (98-107); CREATININE FOR GFR 0.79 MG/DL (0.55-1.30); GLOMERULAR FILTRATION RATE > 60.0 (>39); GLUCOSE, FASTING 99 MG/DL (74-106); SODIUM LEVEL 144 MMOL/L (136-145)
[2023-02-11] MEDS ORDERED: AMOX875T2 PO (08:21)
[2023-02-11] MEDS ORDERED: ENOXAPARIN 40MG/0.4ML SYRINGE (J1650 PER 10MG) SC SCH (09:00)
== END 2023-02-11 11:51 | disposition home or self-care (01) ==
LOC: M ED 15:57 → M ED INP 15:58 → ENRESERV 23:38 → M MSPAV 02-11 00:48
PROVIDERS: ADMIT Internal Medicine; ATTEND Family Medicine
DX: K57.32 Diverticulitis of large intestine without perforation or abscess without bleeding (principal); N39.0 Urinary tract infection, site not specified; E11.9 Type 2 diabetes mellitus without complications; E03.9 Hypothyroidism, unspecified; I10 Essential (primary) hypertension; K58.0 Irritable bowel syndrome with diarrhea; R10.32 Left lower quadrant pain; J45.909 Unspecified asthma, uncomplicated; Z79.899 Other long term (current) drug therapy; Z79.82 Long term (current) use of aspirin; Z79.84 Long term (current) use of oral hypoglycemic drugs; Z79.890 Hormone replacement therapy; Z87.442 Personal history of urinary calculi; Z91.040 Latex allergy status; Z88.6 Allergy status to analgesic agent; Z88.5 Allergy status to narcotic agent; Z88.1 Allergy status to other antibiotic agents
CPT/HCPCS: 36415; 74177; 80048; 80076; 81001; 83690; 85025; 87086; 87635; 96361; 96365; 96375; 99284; C9113; G0378; J1335; J1885; Q9967

== ENCOUNTER → 2023-02-10 | Outpatient (REF) | payer MEDICARE, BC ==
[~2023-02-10] MED LIST changes: +AMOX875T2 PO; -ATOR1TAB19; +ATOR1TAB19 PO; +CLOB5CR TOP; +DUPI300P SQ; +ESOM40CA35 PO; +LATA0.0015 OU; +LEVO50TA5 PO; +LEXA1TAB2 PO; -METF-838; +METF-838 PO; -METO1TAB87; +METO1TAB87 PO; +OMEG10002 PO
[2023-02-10 17:17] LABS: APPEARANCE, URINE CLEAR (CLEAR); BACTERIA, URINE AUTO NEGATIVE (NEGATIVE); BILIRUBIN, URINE AUTO NEGATIVE (NEGATIVE); BLOOD, URINE BLOOD NEGATIVE (NEGATIVE); COLOR, URINE YELLOW (YELLOW); GLUCOSE, URINE (UA) AUTO NEGATIVE (NEGATIVE); KETONE, URINE AUTO NEGATIVE (NEGATIVE); LEUKOCYTE ESTERASE, URINE AUTO 1+ (NEGATIVE); MUCUS, URINE SMALL (NEGATIVE); NITRITE, URINE AUTO NEGATIVE (NEGATIVE); PROTEIN, URINE AUTO NEGATIVE (NEGATIVE); RBC, URINE AUTO 0 /HPF (0-3); SQUAMOUS EPITHELIAL CELL UR AU 0 /HPF (0-6); UROBILINOGEN, URINE AUTO 0.2 mg/dL (0.0-2.0); WBC, URINE AUTO 7 /HPF (0-3)
== END ==
LOC: M LAB REF 16:49
PROVIDERS: ATTEND Nurse Practitioner Family
DX: N39.0 Urinary tract infection, site not specified (principal)

== ENCOUNTER → 2023-07-14 | Outpatient (REF) | payer MEDICARE, BC ==
[~2023-07-14] MED LIST changes: +AMOX875T2 PO; +CLOB5CR TOP; +DUPI300P SQ; +ESOM40CA35 PO; +LATA0.0015 OU; +LEVO50TA5 PO; +LEXA1TAB2 PO; +OMEG10002 PO
== END ==
LOC: M LAB REF 16:35
PROVIDERS: ATTEND Internal Medicine
DX: R41.3 Other amnesia (principal)

== ENCOUNTER → 2024-02-25 | Outpatient (CLI) | payer MEDICARE, BC ==
[~2024-02-25] MED LIST changes: +B-12100010 PO; +XALA0.007
== END ==
LOC: M WUC 10:06
PROVIDERS: ATTEND Physician Assistant
DX: Z87.442 Personal history of urinary calculi (principal)

== ENCOUNTER 2024-03-03 06:38 | Day surgery (SDC) | payer MEDICARE, BC ==
[~2024-03-03] VITALS: Ht 157.5 cm; Wt 75.7 kg
[2024-03-03] MEDS: NS 1,000 ML IV ONE (07:19)
[2024-03-03] MEDS ORDERED: LIDOCAINE 2% 100MG/5ML SDV (FOR ANES.) As Ordered ONE (07:31)
[2024-03-03] MEDS ORDERED: propofoL 200 MG/20 ML VIAL As Ordered ONE (07:31)
[2024-03-03] MEDS ORDERED: ESMOLOL INJ 100MG/10ML VIAL As Ordered ONE (07:36)
[2024-03-03 07:55] VITALS: TEMP 97.3
[2024-03-03 08:09] VITALS: BP 139/80; O2SAT 95
== END 2024-03-03 08:26 | disposition home or self-care (01) ==
LOC: M OPP 06:38
PROVIDERS: ATTEND Surgery
DX: K31.89 Other diseases of stomach and duodenum (principal); K29.70 Gastritis, unspecified, without bleeding; K22.4 Dyskinesia of esophagus; R13.10 Dysphagia, unspecified; E11.9 Type 2 diabetes mellitus without complications; G47.30 Sleep apnea, unspecified; Z99.89 Dependence on other enabling machines and devices; Z79.02 Long term (current) use of antithrombotics/antiplatelets; Z79.1 Long term (current) use of non-steroidal anti-inflammatories (NSAID); Z79.82 Long term (current) use of aspirin; Z79.84 Long term (current) use of oral hypoglycemic drugs; Z79.899 Other long term (current) drug therapy; Z88.1 Allergy status to other antibiotic agents; Z88.4 Allergy status to anesthetic agent; Z88.5 Allergy status to narcotic agent; Z88.8 Allergy status to other drugs, medicaments and biological substances; Z91.040 Latex allergy status
CPT/HCPCS: 43239; 88305; J1805

== ENCOUNTER → 2024-04-11 | Outpatient (CLI) | payer MEDICARE, BC ==
[~2024-04-11] MED LIST changes: +E-Z-GAS II EFFERVESCENT PACKET (SODIUM BICARB./CITRIC ACID/SIMETHICONE) As Ordered ONE; +E-Z-HD 98% w/w 340GM SUSP BTL As Ordered ONE; +E-Z-PAQUE 96% w/w SUSP 176GM BTL As Ordered ONE
== END ==
LOC: M RAD 07:58
PROVIDERS: ATTEND Physician Assistant
DX: R13.10 Dysphagia, unspecified (principal)

== ENCOUNTER → 2024-07-07 | Outpatient (REF) | payer MEDICARE, BC ==
[~2024-07-07] MED LIST changes: -E-Z-GAS II EFFERVESCENT PACKET (SODIUM BICARB./CITRIC ACID/SIMETHICONE) As Ordered ONE; -E-Z-HD 98% w/w 340GM SUSP BTL As Ordered ONE; -E-Z-PAQUE 96% w/w SUSP 176GM BTL As Ordered ONE
== END ==
LOC: M LAB REF 16:31
PROVIDERS: ATTEND Internal Medicine
DX: R19.4 Change in bowel habit (principal)

== ENCOUNTER → 2024-07-21 | Outpatient (CLI) | payer MEDICARE, BC | LOC: M PLARAD 13:56 | PROVIDERS: ATTEND Internal Medicine | DX: R41.3 Other amnesia (principal); R41.0 Disorientation, unspecified; G31.9 Degenerative disease of nervous system, unspecified; R90.82 White matter disease, unspecified ==

== ENCOUNTER → 2024-09-19 | Outpatient (REF) | payer MEDICARE, BC | LOC: M LAB REF 18:07 | PROVIDERS: ATTEND Physician Assistant | DX: R10.30 Lower abdominal pain, unspecified (principal) ==

== ENCOUNTER → 2024-10-21 | Outpatient (CLI) | payer MEDICARE, BC ==
[~2024-10-21] MED LIST changes: +CIPR500T39 PO; +EQL50TAB2 PO; +FAMO40TA3 PO; +JARD1TAB PO; +LISI2.5T9 PO
== END ==
LOC: M WHC 08:59
PROVIDERS: ATTEND Internal Medicine
DX: Z12.31 Encounter for screening mammogram for malignant neoplasm of breast (principal); Z13.820 Encounter for screening for osteoporosis; Z78.0 Asymptomatic menopausal state

== ENCOUNTER → 2024-10-24 | Outpatient (CLI) | payer MEDICARE, BC ==
[2024-10-24 11:01] LABS: HEMATOCRIT 41.6 % (36.0-47.0); HEMOGLOBIN 13.2 g/dl (12.0-15.5); MEAN CORPUSCULAR HEMOGLOBIN 28.6 pg (27.0-33.0); MEAN CORPUSCULAR HGB CONC 31.7 g/dl (32.0-36.5); MEAN CORPUSCULAR VOLUME 90.2 fl (80.0-96.0); PLATELET COUNT, AUTOMATED 241 10^3/uL (150-450); RED BLOOD COUNT 4.61 10^6/uL (4.00-5.40); WHITE BLOOD COUNT 8.2 10^3/uL (4.0-10.0)
== END ==
LOC: M LAB 09:52
PROVIDERS: ATTEND Surgery
DX: K57.30 Diverticulosis of large intestine without perforation or abscess without bleeding (principal)

== ENCOUNTER → 2024-10-25 | Outpatient (REF) | payer MEDICARE, BC | LOC: M LAB REF 16:07 | PROVIDERS: ATTEND Internal Medicine | DX: R10.9 Unspecified abdominal pain (principal) ==

== ENCOUNTER 2024-12-19 08:48 | Day surgery (SDC) | payer MEDICARE, BC ==
[~2024-12-19] VITALS: Ht 157.5 cm; Wt 72.7 kg
[~2024-12-19 08:48] MED LIST changes: +LIDOCAINE 2% 100MG/5ML SDV (FOR ANES.) As Ordered ONE; +propofoL 200 MG/20 ML VIAL As Ordered ONE
[2024-12-19 11:00] VITALS: TEMP 97.1
[2024-12-19 11:24] VITALS: BP 106/52; O2SAT 96
== END 2024-12-19 11:30 | disposition home or self-care (01) ==
LOC: M OPP 08:48
PROVIDERS: ATTEND Surgery
DX: K57.30 Diverticulosis of large intestine without perforation or abscess without bleeding (principal); D12.3 Benign neoplasm of transverse colon; K64.2 Third degree hemorrhoids; K64.4 Residual hemorrhoidal skin tags; K58.9 Irritable bowel syndrome, unspecified; E11.9 Type 2 diabetes mellitus without complications; G47.30 Sleep apnea, unspecified; Z79.82 Long term (current) use of aspirin; Z79.84 Long term (current) use of oral hypoglycemic drugs; Z79.899 Other long term (current) drug therapy; E03.9 Hypothyroidism, unspecified; E78.00 Pure hypercholesterolemia, unspecified; G47.33 Obstructive sleep apnea (adult) (pediatric); Z79.61 Long term (current) use of immunomodulator; I10 Essential (primary) hypertension; Z88.1 Allergy status to other antibiotic agents; Z88.5 Allergy status to narcotic agent; Z88.8 Allergy status to other drugs, medicaments and biological substances; Z91.040 Latex allergy status; Z79.890 Hormone replacement therapy

== ENCOUNTER → 2025-05-08 | Outpatient (CLI) | payer MEDICARE, BC ==
[~2025-05-08] MED LIST changes: -EQL50TAB2 PO; -FLOM0.4C39 PO; -LIDOCAINE 2% 100MG/5ML SDV (FOR ANES.) As Ordered ONE; +TAMS-18 PO; +VITA1TAB82 PO; -propofoL 200 MG/20 ML VIAL As Ordered ONE
== END ==
LOC: M WUC 11:03
PROVIDERS: ATTEND Physician Assistant Medical
DX: M25.511 Pain in right shoulder (principal); M25.512 Pain in left shoulder; M19.012 Primary osteoarthritis, left shoulder; M19.011 Primary osteoarthritis, right shoulder

== ENCOUNTER 2025-09-04 12:33 | Outpatient (RCR) | payer MEDICARE, BC | END 2025-09-10 | LOC: M PT 12:33 | PROVIDERS: ATTEND Internal Medicine | DX: M25.511 Pain in right shoulder (principal) ==

== ENCOUNTER 2025-09-26 10:45 | Outpatient (RCR) | payer MEDICARE, BC | END 2025-10-11 | LOC: M PT 10:45 | PROVIDERS: ATTEND Internal Medicine | DX: M25.511 Pain in right shoulder (principal) ==